=== PATIENT | male | born 1975 | race Caucasian/White ===

== ENCOUNTER 2018-02-17 07:38 | Day surgery (SDC) | payer BC ==
[~2018-02-17 07:38] MED LIST: LACTATED RINGERS 1,000 ML IV SCH
--- NOTE | 2018-02-17 10:16 | Anesthesia Day of Surgery ---
Anesthesia Day of Surgery - Day of Surgery Patient Examined: Yes Patient H&P Reviewed: Yes Patient is NPO: Yes
--- NOTE | 2018-02-17 10:16 | Anesthesia Consultation ---
Anesthesia Consult and Med Hx Date of service: 02/17/18 - Airway Anesthetic Teeth Evaluation: Good ROM Head & Neck: Adequate Mental/Hyoid Distance: Adequate Mallampati Class: Class I Intubation Access Assessment: Good - Pulmonary Exam CTA: Yes - Cardiac Exam Cardiac Exam: RRR - Pre-Operative Health Status ASA Pre-Surgery Classification: ASA2 Proposed Anesthetic Plan: General - Pulmonary Hx Smoking: Yes (12CIG/DAY FOR 18 YEARS) - Central Nervous System Hx Psychiatric Problems: No - Other Systems Hx Alcohol Use: No Hx Substance Use: No Hx Cancer: No - Additional Comments Anesthesia Medical History Comments: Informed consent obtained
[2018-02-17] MEDS ORDERED: DILAUDID IV PRN (10:17)
[2018-02-17] MEDS ORDERED: ZOFRAN ONE (10:30)
[2018-02-17] MEDS ORDERED: DILAUDID ONE (10:49)
[2018-02-17] MEDS ORDERED: DIPRIVAN 10 MG/ML IV ONE (10:49)
[2018-02-17] MEDS ORDERED: XYLOCAINE MPF 2% ONE (10:50)
[2018-02-17] MEDS ORDERED: ANCEF/STERILE WATER 2 GM/20 ML IV NR (11:00)
[2018-02-17] MEDS ORDERED: VERSED IV NR (11:00)
[2018-02-17] MEDS ORDERED: DILAUDID IV SCH (11:16)
[2018-02-17] MEDS ORDERED: XYLOCAINE 1% 20 mL ONE (12:13)
[2018-02-17] MEDS ORDERED: MARCAINE 0.5% 30 ML INFILTRATI ONE (12:14)
[2018-02-17] MEDS ORDERED: SUBLIMAZE ONE (12:21)
[2018-02-17] MEDS ORDERED: MARCAINE 0.5% INFILTRATI ONE (12:35)
[2018-02-17] MEDS ORDERED: NACL 0.9% IR ONE (12:35)
[2018-02-17] MEDS ORDERED: XYLOCAINE 1% 20 mL INFILTRATI ONE (12:36)
--- NOTE | 2018-02-17 13:22 | Short Stay Summary ---
Short Stay Documentation Date of service: 02/17/18 Narrative H&P: See dictated H&P. - History Principal diagnosis: Chronic perirectal abscesses H&P: dictated Past Medical History: No medical history Past Surgical History: No surgical history Social history: no significant social history - Allergies and Medications Current Medications: Allergies No Known Allergies Allergy (Verified 02/16/18 15:54) Home Medications Medication Instructions Recorded Confirmed Last Taken Type Acetaminophen/Codeine [Tylenol 1 tab PO Q6H PRN 02/16/18 02/17/18 02/16/18 History /Codeine # 3 tab] Doxycycline Hyclate [Doxycycline 100 mg PO Q12HR 02/16/18 02/17/18 02/16/18 History Hyclate TAB] Active Medications Cefazolin Sodium (Ancef/Sterile Water 2 Gm/20 Ml) 2 gm IV PREOP NR Stop: 02/17/18 23:59 Hydromorphone HCl (Dilaudid) 0.5 mg IV Q10MIN PRN PRN Reason: Pain , Severe (7-10) Stop: 02/17/18 23:59 Hydromorphone HCl (Dilaudid) 0.5 mg IV PREOP LEILA Stop: 02/17/18 23:59 Last Admin: 02/17/18 11:31 Dose: 0.5 mg Lactated Ringer's (Lactated Ringers) 1,000 mls @ 100 mls/hr IV DIRECT LEILA Last Admin: 02/17/18 11:00 Dose: 100 mls/hr Midazolam HCl (Versed) 2 mg IV PREOP NR Stop: 02/17/18 23:59 Last Admin: 02/17/18 11:00 Dose: 2 mg - Physical exam General appearance: no acute distress Lungs: Clear to auscultation Heart: Regular rate Gastrointestinal: normal Rectal Exam: other (multiple abscesses) Neurological: Normal speech - Brief post op/procedure progress note Date of procedure: 02/17/18 Pre-op diagnosis: adriana-rectal abscesses Post-op diagnosis: same Procedure: EUA I&D of multiple abscesses Anesthesia: GETA Findings: two large abscess tracts and a separate, single abscess pocket Surgeon: HORTENCIA MANSFIELD Estimated blood loss: minimal (<25cc) Pathology: none Condition: stable - Hospital course Hospital course: uneventful out-pt surgery - Disposition Condition at discharge: Stable Disposition: DC-01 TO HOME OR SELFCARE - Discharge Diagnoses (1) Adriana-rectal abscess Status: Acute Short Stay Discharge Plan Activity: no restrictions Diet: regular Wound: change dressing (as needed. May leave off when drainage stops), other ( Sitz baths at least 2-3x/day and after each bowel movement. Use Baby Wipes after bowel movements. ) Follow up with: TAMMIE MAXWELL MD [Primary Care Provider] - 7 Days HORTENCIA MANSFIELD MD [Staff Physician] - 7 Days Forms: Work/School Release Form Prescriptions: oxyCODONE /ACETAMINOPHEN [Percocet 5/325] 1 tab PO Q6HR PRN #30 tablet PRN Reason: Pain
[2018-02-17] MEDS ORDERED: PERCOCET 5/325 PO ONE (15:00)
[2018-02-17 15:03] VITALS: BP 109/71
[2018-02-17] MEDS ORDERED: PHENERGAN PO PRN (15:15)
--- NOTE | 2018-02-17 18:37 | Operative Report ---
PREOPERATIVE DIAGNOSIS: Chronic perirectal abscesses. POSTOPERATIVE DIAGNOSIS: Chronic perirectal abscesses. PROCEDURES: 1. Exam under anesthesia. 2. Incision and drainage of 3 perirectal abscesses with drain placements. ATTENDING PHYSICIAN: Medina Weir M.D. ANESTHESIA: General. ESTIMATED BLOOD LOSS: Less than 25 mL. FLUIDS: 1200 mL. FINDINGS: Two large abscesses with tracks to other areas of drainage, 1 isolated small abscess. DRAINS: Quarter inch Hines drain x 3. COMPLICATIONS: Stable transport to Recovery Room. INDICATIONS: This is a 42-year-old male who has had a 1-year history of perirectal abscesses that recurrently flare up and then spontaneously drain, initially began on his right side and then moved to the left. The patient initially was seen in the office and found to have extensive disease in need of exam under anesthesia and formal I and D. Procedure, risks, benefits, and alternatives were explained to the patient. Risks included, but were not limited to infection, bleeding, pain, injury to surrounding structures, possible need for further procedures. The patient understood and consented. DESCRIPTION OF PROCEDURE: The patient was brought to the operating room and placed on the table in supine position. After adequate general anesthesia was established, the patient was placed in stirrups for lithotomy position. Antibiotics had been administered prior to start of the case. Sterile prep and drape was performed. Timeout was performed. I began by doing an exam under anesthesia. I did not see any obvious involvement in the anus or rectal region. He had one large area of swelling that was in the 10 o'clock position, which would be right anterior position. The swelling was 5 x 3 cm. The main area of drainage was anterior. There were 2 other areas of drainage that were pinpoint and located more medially towards the anus, but not involving the anus. Lacrimal probes were inserted. All these connected. I felt the best compromise in the situation instead of opening up the entire wound, which would have a prolonged wound healing, issue would be to do a cruciate incision on the anterior aspect where most of the purulent drainage was coming and then enlarge the 2 pinpoint openings such that Gilbert drains could be placed. This wound was thoroughly washed out and 2 Gilbert drains were placed and secured with 3-0 nylon sutures. There was another area in the 7 o'clock position that was an isolated abscess. This was opened about 1 cm. The corners of the cruciate were cut to allow the opening to stay open. This was irrigated out. There was no connection to any surrounding pockets of infection. The third area was in the 1 o'clock position. It extended from the base of the scrotum down towards the 3 o'clock position. I made a cruciate incision over the main body in the 1 o'clock position and I did find the connection to the lower drainage point. I did the same thing here and that the corners of the cruciate incision were cut. The wound was thoroughly irrigated and then I enlarged the opening at the 3 o'clock allowing me to pass a Gilbert drain through. All the wounds had been thoroughly irrigated. Hemostasis was achieved with electrocautery and pressure. I injected 50 mL of a combination of 0.5% Marcaine and 1% lidocaine into the perianal and ischiorectal areas. Once we had good hemostasis, dressings were placed. The patient tolerated the procedure well. There were no complications. All counts were correct at the end of the case. I spoke with his by phone afterwards and gave her a full report. The patient reported no perianal pain in PACU. JOB# [id number] TALHA/ADA
--- NOTE | 2018-02-18 16:43 | Post Anesthesia Evaluation ---
- Post Anesthesia Evaluation Patient Participated: Yes Airway Patent: Yes Stable Respiratory Function: Yes Nausea/Vomiting: No Temp > 96.8F: Yes Pain Manageable: Yes Adequeate Hydration: Yes Anesthesia Complications: No Block Receding Appropriately: Not Applicable
== END 2018-02-17 15:40 | disposition home or self-care (01) ==
LOC: OR 07:38
PROVIDERS: ATTEND Surgery
DX: K61.1 Rectal abscess (principal); Z87.891 Personal history of nicotine dependence
CPT/HCPCS: 46040; J0690; J1170; J2250; J2405; J2704; J3010; J7120; Q0169